=== PATIENT | female | born 1990 | race Caucasian/White ===

== ENCOUNTER 2016-08-03 12:39 | Emergency (ER) | payer MEDICAID, OTHER ==
[~2016-08-03] VITALS: Wt 87.0 kg
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
[2016-08-03] MEDS ORDERED: KETOROLAC 60 MG INJ IM STA (15:54)
[2016-08-03] MEDS ORDERED: IBUP-1542 PO (16:14)
[2016-08-03] MEDS ORDERED: HYDR-906 PO (16:14)
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
== END 2016-08-03 17:20 | disposition home or self-care (01) ==
LOC: FTE 12:39
DX: M25.561 Pain in right knee (principal); R51 Headache; Z04.3 Encounter for examination and observation following other accident
CPT/HCPCS: 70450; 96372; J1885; Z7502

== ENCOUNTER 2016-11-22 22:05 | Emergency (ER) | payer MEDICAID, OTHER ==
[~2016-11-22] VITALS: Ht 160 cm; Wt 82.0 kg
[~2016-11-22 22:05] MED LIST: HYDR-906 PO; IBUP-1542 PO
[2016-11-22 22:08] VITALS: Ht 160 cm; Wt 82.0 kg
[2016-11-22] MEDS ORDERED: SOD CHLORIDE 0.9% 1,000 ML IV STA (23:25)
[2016-11-22] MEDS ORDERED: KETOROLAC 30 MG INJ IV STA (23:25)
[2016-11-23] VITALS (12 sets, daily range): BP systolic 100–104; BP diastolic 52–60; PULSE 72–92; RESP 13–24
[2016-11-23] LABS: BASOPHILS % 0.3 % (0.0-2.0); EOSINOPHILS # 0.1 10^3/ul (0.0-0.5); EOSINOPHILS % 0.3 % (0.0-7.0); HEMATOCRIT 37.8 % (37.0-47.0); HEMOGLOBIN 12.4 g/dl (12.0-16.0); LYMPHOCYTES % 26.6 % (15.0-51.0); MEAN CORPUSCULAR HEMOGLOBIN 29.4 pg (29.0-33.0); MEAN CORPUSCULAR HGB CONC 32.8 g/dl (32.0-37.0); MEAN CORPUSCULAR VOLUME 89.6 fl (82.0-101.0); MEAN PLATELET VOLUME 11.8 fl (7.4-10.4); MONOCYTE # 1.2 10^3/ul (0.3-0.9); MONOCYTES % 7.6 % (0.0-11.0); NEUTROPHILS % 64.6 % (39.0-77.0); PLATELET COUNT 273 10^3/UL (140-415); RED BLOOD COUNT 4.22 10^6/ul (4.20-5.40); WHITE BLOOD COUNT 15.1 10^3/ul (4.8-10.8)
[2016-11-23 00:20] LABS: ALBUMIN/GLOBULIN RATIO 1.21; BILIRUBIN,INDIRECT 0.4 mg/dl (0-1.1); BILIRUBIN,TOTAL 0.4 mg/dl (0.2-1.3); CALCIUM 9.8 mg/dl (8.4-10.2); CREATININE 0.6 mg/dl (0.44-1.00); POTASSIUM 3.9 mmol/L (3.5-5.1); TOTAL PROTEIN 7.3 g/dl (6.1-8.1); UR BACTERIA FEW /HPF (NONE SEEN); UR BUDDING YEAST MODERATE /HPF (NONE SEEN); UR MUCUS MANY /HPF (NONE SEEN); UR RBC > 182 /HPF (0-5)
[2016-11-23 00:31] LABS: ADD UMIC YES; UR ASCORBIC ACID NEGATIVE (NEGATIVE); UR BILIRUBIN (Dip) NEGATIVE (NEGATIVE); UR BLOOD (Dip) 3+ mg/dL (NEGATIVE); UR CLARITY TURBID (CLEAR); UR COLOR RED (YELLOW); UR GLUCOSE (Dip) NEGATIVE (NEGATIVE); UR KETONES (Dip) TRACE mg/dL (NEGATIVE); UR LEUKOCYTE ESTERASE (Dip) NEGATIVE Leu/ul (NEGATIVE); UR NITRITE (Dip) NEGATIVE (NEGATIVE); UR SPECIFIC GRAVITY (Dip) 1.032 (1.003-1.030); UR TOTAL PROTEIN (Dip) 2+ mg/dl (NEGATIVE); UR UROBILINOGEN (Dip) NEGATIVE (NEGATIVE)
--- NOTE | 2016-11-23 01:17 | RADRPT ---
PROCEDURE: Obstetrical ultrasound. CLINICAL INDICATION: Vaginal bleeding. TECHNIQUE: Multiple sonographic images of the pelvis were obtained with transabdominal technique. Images were obtained with sánchez scale and color Doppler. COMPARISON: No prior studies are available for comparison. FINDINGS: There is an gestational sac within the endocervical canal with a pole identified. No hea rt tones are identified. The crown-rump length averages 1.86 cm, compatible with 8 weeks and 3 days. The mean sac diameter averages 2.52 cm, compatible with 7 weeks and 3 days. A yolk sac is penelope ntified. No subchorionic collection is identified. There is no pelvic free fluid. The right ovary measures 3.2 x 1.4 x 1.8 cm and the left ovary measur es 3.1 x 1.5 x 1.4 cm. There is normal flow to both ovaries. There is no suspicious adnexal mass penelope ntified. IMPRESSION: Gestational sac within the endocervical canal with a pole identified with an estimated gestati onal age of 8 weeks and 0 days. No heart tones are identified compatible with early failed pre gnancy. .Nick Harding MD, MD Date Time Electronically viewed and signed by .Nick Harding MD, MD on 11/23/2016 01:17 .T/
[2016-11-23 01:30] LABS: BASOPHILS % 0.3 % (0.0-2.0); EOSINOPHILS # 0.1 10^3/ul (0.0-0.5); EOSINOPHILS % 0.5 % (0.0-7.0); HEMATOCRIT 31.6 % (37.0-47.0); HEMOGLOBIN 10.7 g/dl (12.0-16.0); LYMPHOCYTES # 2.8 10^3/ul (0.8-2.9); LYMPHOCYTES % 18.8 % (15.0-51.0); MEAN CORPUSCULAR HEMOGLOBIN 30.7 pg (29.0-33.0); MEAN CORPUSCULAR HGB CONC 33.9 g/dl (32.0-37.0); MEAN CORPUSCULAR VOLUME 90.5 fl (82.0-101.0); MEAN PLATELET VOLUME 11.8 fl (7.4-10.4); MONOCYTES % 6.8 % (0.0-11.0); PLATELET COUNT 207 10^3/UL (140-415); RED BLOOD COUNT 3.49 10^6/ul (4.20-5.40); WHITE BLOOD COUNT 14.6 10^3/ul (4.8-10.8)
[2016-11-23] MEDS ORDERED: HYDROCODONE/APAP (5/325) TAB PO ONE (01:30)
[2016-11-23] MEDS ORDERED: NAPR-260 PO (05:33)
--- NOTE | 2016-11-23 05:39 | ERD ---
ER Documentation Chief Complaint Date/Time DATE: 11/23/16 TIME: 05:35 Chief Complaint Took pills to abort and now has severe vag bleed Cytotec 400 (ARSALAN VERMA PA-C) HPI 46-year-old female coming in complaining of vaginal bleeding. Patient is about 9 weeks and was seen at [facility]. She was given a Cytotec pill for medical . Patient states she took pill earlier today and has had heavy vaginal bleeding. Patient states she felt dizzy earlier and lightheaded. Patient was told to come to the ER. A1 (ARSALAN VERMA PA-C) ROS All systems reviewed and are negative except as per history of present illness. (ARSALAN VERMA PA-C) Medications Home Meds Active Scripts Naproxen* (Naprosyn*) 500 Mg Tablet, 500 MG PO BID Y for PAIN AND/OR INFLAMMATION, #30 TAB Prov:ARSALAN VERMA PA-C 11/23/16 Ibuprofen* (Motrin*) 600 Mg Tab, 600 MG PO Q6, #30 TAB Prov:BELEN,RHYS C 08/03/16 Hydrocodone/Acetaminophen (Starbuck 5-325 Tablet) 1 Each Tablet, 1 TAB PO Q6H Y for PAIN, #10 TAB Prov:BELEN,RHYS C 08/03/16 Allergies Allergies: Coded Allergies: No Known Allergies (Verified Allergy, Unknown, 08/09/15) PMhx/Soc History of Surgery: Yes (C-sectionx2) Anesthesia Reaction: No Hx Neurological Disorder: No Hx Respiratory Disorders: No Hx Cardiac Disorders: No Hx Psychiatric Problems: No Hx Miscellaneous Medical Probl: No Hx Alcohol Use: No Hx Substance Use: No Hx Tobacco Use: No Smoking Status: Never smoker (ARSALAN VERMA PA-C) Physical Exam Vitals Vital Signs Date Time Temp Pulse Resp B/P Pulse Ox O2 Delivery O2 Flow Rate FiO2 11/22/16 22:08 99.4 105 20 114/73 98 (GERI DONIS PA-C) Physical Exam GENERAL: The patient is well-appearing, well-nourished, in no acute distress HEENT: Atraumatic. Conjunctivae are pink. Pupils equal, round, and reactive to light. There is no scleral icterus. Tympanic membranes clear bilaterally. Oropharynx clear. No nystagmus or photophobia. NECK: C-spine is soft and supple. There is no meningismus. There is no cervical lymphadenopathy. No JVD. No bruits. No goiter. CHEST: Clear to auscultation bilaterally. There are no rales, wheezes or rhonchi. HEART: Regular rate and rhythm. No murmurs, clicks, rubs or gallops. No S3 or S4. ABDOMEN:Soft, nontender and nondistended. Good bowel sounds. No rebound or guarding. No gross peritonitis. No gross organomegaly or masses. No Orourke sign or McBurney point tenderness. : OS slightly open. Mild blood within the vaginal vault. No pooling. (ARSALAN VERMA PA-C) Result Diagram: 11/23/16 0120 11/22/16 2335 Results 24 hrs Laboratory Tests Test 11/22/16 23:35 11/23/16 01:20 White Blood Count 15.110^3/ul 14.610^3/ul Red Blood Count 4.2210^6/ul 3.4910^6/ul Hemoglobin 12.4g/dl 10.7g/dl Hematocrit 37.8% 31.6% Mean Corpuscular Volume 89.6fl 90.5fl Mean Corpuscular Hemoglobin 29.4pg 30.7pg Mean Corpuscular Hemoglobin Concent 32.8g/dl 33.9g/dl Red Cell Distribution Width 13.0% 13.0% Platelet Count 28800^3/UL 80706^3/UL Mean Platelet Volume 11.8fl 11.8fl Neutrophils % 64.6% 73.0% Lymphocytes % 26.6% 18.8% Monocytes % 7.6% 6.8% Eosinophils % 0.3% 0.5% Basophils % 0.3% 0.3% Nucleated Red Blood Cells % 0.0/100WBC 0.0/100WBC Neutrophils # (Manual) 9.810^3/ul 10.710^3/ul Lymphocytes # 4.010^3/ul 2.810^3/ul Monocytes # 1.210^3/ul 1.010^3/ul Eosinophils # 0.110^3/ul 0.110^3/ul Basophils # 0.010^3/ul 0.010^3/ul Nucleated Red Blood Cells # 0.010^3/ul 0.010^3/ul Urine Color RED Urine Clarity TURBID Urine pH 5.0 Urine Specific Ora 1.032 Urine Ketones TRACEmg/dL Urine Nitrite NEGATIVEmg/dL Urine Bilirubin NEGATIVEmg/dL Urine Urobilinogen NEGATIVEmg/dL Urine Leukocyte Esterase NEGATIVELeu/ul Urine Microscopic RBC > 182/HPF Urine Microscopic WBC 26/HPF Urine Bacteria FEW/HPF Urine Mucus MANY/HPF Urine Yeast (Budding) MODERATE/HPF Urine Hemoglobin 3+mg/dL Urine Glucose NEGATIVEmg/dL Urine Total Protein 2+mg/dl Sodium Level 137mmol/L Potassium Level 3.9mmol/L Chloride Level 106mmol/L Carbon Dioxide Level 23mmol/L Anion Gap 12 Blood Urea Nitrogen 9mg/dl Creatinine 0.60mg/dl Glucose Level 100mg/dl Calcium Level 9.8mg/dl Total Bilirubin 0.4mg/dl Direct Bilirubin 0.00mg/dl Indirect Bilirubin 0.4mg/dl Aspartate Amino Transf (AST/SGOT) 25IU/L Alanine Aminotransferase (ALT/SGPT) 31IU/L Alkaline Phosphatase 81IU/L Total Protein 7.3g/dl Albumin 4.0g/dl Globulin 3.30g/dl Albumin/Globulin Ratio 1.21 Beta HCG, Quantitative 65631.0mIU/ml Current Medications Medications (Trade) Dose Ordered Sig/Papa Route PRN Reason Start Time Stop Time Status Last Admin Dose Admin Sodium Chloride (NS) 1,000 ml @ 1,000 mls/hr Q1H STAT IV 11/22/16 23:25 11/23/16 00:24 DC 11/22/16 23:50 Ketorolac Tromethamine (Toradol) 30 mg ONCE STAT IV 11/22/16 23:25 11/22/16 23:26 DC 11/22/16 23:50 Acetaminophen/ Hydrocodone Bitart 1 tab 1 tab ONCE ONCE PO 11/23/16 01:30 11/23/16 01:31 DC 11/23/16 01:29 Oxytocin/Lactated Ringer's 500 ml @ 0 mls/hr ONCE PRN IV For Hemorrhage Management 11/23/16 11:00 11/23/16 11:00 DC Methylergonovine Maleate (Methergine) 0.2 mg ONCE PRN IM VAGINAL BLEEDING 11/23/16 11:00 11/23/16 11:00 DC Carboprost Tromethamine (Hemabate) 250 mcg ONCE PRN IM VAGINAL BLEEDING 11/23/16 11:00 11/23/16 11:00 DC Misoprostol (Cytotec) 1,000 mcg ONCE PRN FL VAGINAL BLEEDING 11/23/16 11:00 11/23/16 11:00 DC PROCEDURE: First trimester obstetrical ultrasound. CLINICAL INDICATION: , pelvic pain TECHNIQUE: Transabdominal sánchez scale and color Doppler ultrasound of the uterus of less than 14 weeks gestation (first trimester). COMPARISON: OB ultrasound 11/22/2016 FINDINGS: Abnormal low lying intrauterine gestation partially within the endocervical canal. No evidence of extrauterine gestation. Fielding-rump length: 1.89 cm heart rate: Undetected No evidence of subchorionic hemorrhage. Normal appearance the right ovary. Left ovary not identified. Free fluid: None. IMPRESSION: Failed intrauterine gestation with an estimated gestational age of 8 weeks 3 days by ultrasound criteria. No detectable heart rate. Products of conception are retained within the cervix and lower uterine segment. Findings are overall unchanged from the previous examination. Results were discussed with YELITZA Aguayo by telephone 11/23/2016 8:15:[address] Zack Gonzalez (GERI DONIS PA-C) Procedures/[facility] DIAGNOSTIC IMAGING REPORT Patient: EVERETTE ZHU : 1990 Age: 26 Sex: F MR #: [id number] DOS: 11/22/16 2325 Ordering MD: YULY VERMA PA-C Location: [facility] Room/Bed: PROCEDURE: Obstetrical ultrasound. CLINICAL INDICATION: Vaginal bleeding. TECHNIQUE: Multiple sonographic images of the pelvis were obtained with transabdominal technique. Images were obtained with sánchez scale and color Doppler. COMPARISON: No prior studies are available for comparison. FINDINGS: There is an gestational sac within the endocervical canal with a pole identified. No heart tones are identified. The crown-rump length averages 1.86 cm, compatible with 8 weeks and 3 days. The mean sac diameter averages 2.52 cm, compatible with 7 weeks and 3 days. A yolk sac is identified. No subchorionic collection is identified. There is no pelvic free fluid. The right ovary measures 3.2 x 1.4 x 1.8 cm and the left ovary measures 3.1 x 1.5 x 1.4 cm. There is normal flow to both ovaries. There is no suspicious adnexal mass identified. IMPRESSION: Gestational sac within the endocervical canal with a pole identified with an estimated gestational age of 8 weeks and 0 days. No heart tones are identified compatible with early failed . ER COURSE: Patient's hemoglobin did show signs of dropping. Dr. Ferrell laborist on-call came to evaluate patient at bedside. She recommended repeat ultrasound. If gestational sac previously seen within the endocervical canal is no longer visualized, Patient can go home without complication. This case will be passed on to YELITZA Donis. MDM: There are 26-year-old female coming in complaining of vaginal bleeding. I have low suspicion for hemodynamic instability. Patient's bleeding resolved and became stable while in the emergency room. If patient's gestational sac previously seen within the endocervical canal is no longer visualized on second ultrasound, patient is stable for outpatient management. Patient does not require a RhoGam injection as she is Rh+. No signs of urinary tract infection. (ARSALAN VERMA PA-C) This is a 26-year-old female patient who is a A1 presents to the ED and was signed off to me by my colleague, Yuly Verma PA-C pending the repeat pelvic ultrasound results. Repeat ultrasound shows failed intrauterine gestation with an estimated gestational age of 8 weeks 3 days by ultrasound criteria. No detectable heart rate. Products of conception are retained within the cervix and lower uterine segment. Patient still has a gestational sac and products of conception retained here in the ED after taking Cytotec prescribed by [facility]. This case was discussed with Dr. Weaver, laborist call and stated that patient can be consented for a dilation and curettage as an inpatient procedure however patient will be discharged after the procedure. Patient is hemodynamically stable. This was discussed with the patient. She has agreed to the procedure. Patient is now under the care of Dr. Weaver for further evaluation and treatment. (GERI DONIS PA-C) Departure Diagnosis: Primary Impression: Vaginal bleeding Condition: Stable Patient Instructions: Vaginal Bleed in Referrals: IRMA SOL MD (PCP) Additional Instructions: FOLLOW UP WITH YOUR PRIMARY CARE PHYSICIAN TOMORROW.Return to this facility if you are not improving as expected. ARSALAN VERMA PA-C Nov 23, 2016 05:39 GERI DONIS PA-C Nov 23, 2016 11:10
--- NOTE | 2016-11-23 08:17 | RADRPT ---
PROCEDURE: First trimester obstetrical ultrasound. CLINICAL INDICATION: , pelvic pain TECHNIQUE: Transabdominal sánchez scale and color Doppler ultrasound of the uterus of less t pena 14 weeks gestation (first trimester). COMPARISON: OB ultrasound 11/22/2016 FINDINGS: Abnormal low lying intrauterine gestation partially within the endocervical canal. No evidence of extrauterine gestation. Havelock-rump length: 1.89 cm heart rate: Undetected No evidence of subchorionic hemorrhage. Normal appearance the right ovary. Left ovary not identified. Free fluid: None. IMPRESSION: Failed intrauterine gestation with an estimated gestational age of 8 weeks 3 days by ultrasound laura billings. No detectable heart rate. Products of conception are retained within the cervix and lowe r uterine segment. Findings are overall unchanged from the previous examination. Results were discussed with YELITZA Aguayo by telephone 11/23/2016 8:15:[address] Zack Gonzalez RPTAT: AADD .Zack Gonzalez MD, Date Time Electronically viewed and signed by .Zack Gonzalez MD, on 11/23/2016 08:17 .B/
[2016-11-23] MEDS ORDERED: CEFAZOLIN 1 GM INJ ONE (10:27)
[2016-11-23] MEDS ORDERED: PROPOFOL 20 ML ONE (10:27)
[2016-11-23] MEDS ORDERED: MIDAZOLAM 1 MG/ML 2 ML INJ ONE (10:27)
[2016-11-23] MEDS ORDERED: FENTAnyl 50 MCG/ML VIAL ONE (10:27)
[2016-11-23] MEDS ORDERED: NEOSTIGMINE 3 MG/3 ML SYRINGE ONE (10:27)
[2016-11-23] MEDS ORDERED: ROCURONIUM 50 MG INJ ONE (10:27)
[2016-11-23] MEDS ORDERED: DEXAMETHASONE 4 MG/ML 1 ML INJ ONE (10:27)
[2016-11-23] MEDS ORDERED: ONDANSETRON 4 MG INJ ONE (10:27)
[2016-11-23] MEDS ORDERED: GLYCOPYRROLATE 0.4 MG INJ ONE (10:27)
[2016-11-23] MEDS ORDERED: MISOPROSTOL 200 MCG TAB PR PRN (11:00)
[2016-11-23] MEDS ORDERED: CARBOPROST 250 MCG INJ IM PRN (11:00)
[2016-11-23] MEDS ORDERED: OXYTOCIN 30 UNITS/LR 500 ML IV PRN (11:00)
[2016-11-23] MEDS ORDERED: METHYLERGONOVINE 0.2 MG INJ IM PRN (11:00)
[2016-11-23] MEDS ORDERED: HYDROmorphONE (0.2 MG/ML) 10ML SYG IV PRN ×3 (11:30)
[2016-11-23] MEDS ORDERED: IPRATROPIUM (NEB) 0.5 MG/2.5 ML AMP HHN PRN (11:30)
[2016-11-23] MEDS ORDERED: ALBUTEROL 0.083% (NEB) 2.5 MG/3 ML AMP HHN PRN (11:30)
[2016-11-23] MEDS ORDERED: EPHEDrine SULFATE 50 MG/5 ML SYG IV PRN (11:30)
[2016-11-23] MEDS ORDERED: OXYCODONE/ACETAMINOPHEN (5/325) TAB PO PRN ×2 (11:30)
[2016-11-23] MEDS ORDERED: TRIMETHOBENZAMIDE 100 MG/ML VIAL IM PRN (11:30)
[2016-11-23] MEDS ORDERED: ONDANSETRON 4 MG INJ IV PRN (11:30)
[2016-11-23] MEDS ORDERED: LABETALOL HCL 20MG INJ IV PRN (11:30)
[2016-11-23] MEDS ORDERED: FENTAnyl 50 MCG/ML VIAL IV PRN ×3 (11:30)
[2016-11-23] MEDS ORDERED: MIDAZOLAM 1 MG/ML 2 ML INJ IV PRN (11:30)
[2016-11-23] MEDS ORDERED: DIPHENHYDRAMINE 50 MG INJ IV PRN (11:30)
[2016-11-23] MEDS ORDERED: hydrALAzine 20 MG INJ IV PRN (11:30)
[2016-11-23] MEDS ORDERED: MEPERIDINE 25 MG INJ IV PRN (11:30)
--- NOTE | 2016-11-23 11:33 | OPPN ---
Date/Time of Note Date/Time of Note DATE: 11/23/16 TIME: 11:32 Operative Report Free Text/Dictation 9wks Incomplete Preoperative Diagnosis 9wks Incomplete Postoperative Diagnosis 9wks Incomplete Operation/Procedure Performed D&C&suction Provider: CRISTIAN PHILLIPS M.D. Anesthesia Type: general Estimated blood loss: 10 - 50 ml's Transfusion Required: no Specimens POC Grafts/Implants: none Complications: no CRISTIAN PHILLIPS M.D. Nov 23, 2016 11:33
[2016-11-23 11:45] LABS: BASOPHILS % 0.2 % (0.0-2.0); EOSINOPHILS # 0.1 10^3/ul (0.0-0.5); HEMATOCRIT 26.2 % (37.0-47.0); HEMOGLOBIN 8.9 g/dl (12.0-16.0); LYMPHOCYTES % 21.3 % (15.0-51.0); MEAN CORPUSCULAR HEMOGLOBIN 30.9 pg (29.0-33.0); MEAN PLATELET VOLUME 11.7 fl (7.4-10.4); MONOCYTE # 0.6 10^3/ul (0.3-0.9); MONOCYTES % 5.9 % (0.0-11.0); NEUTROPHILS % 71.2 % (39.0-77.0); PLATELET COUNT 156 10^3/UL (140-415); RED BLOOD COUNT 2.88 10^6/ul (4.20-5.40); RED CELL DISTRIBUTION WIDTH 13.1 % (11.5-14.5); WHITE BLOOD COUNT 9.3 10^3/ul (4.8-10.8)
[2016-11-23 12:10] LABS: INR 1.06; PROTIME 13.8 Sec (12.2-14.2); PT RATIO 1.1
[2016-11-23 12:11] LABS: PARTIAL THROMBOPLASTIN TIME 24.1 Sec (25.0-35.0)
--- NOTE | 2016-11-23 12:51 | OPR ---
DATE OF OPERATION: 11/23/2016 PREOPERATIVE DIAGNOSIS: Incomplete at 9 weeks. POSTOPERATIVE DIAGNOSIS: Incomplete at 9 weeks. OPERATIVE PROCEDURE: Dilatation and curettage and suction. SURGEON: Jose Weaver MD ANESTHESIA: General. ANESTHESIOLOGIST: Ignacio Damon MD ESTIMATED BLOOD LOSS: Less than 50 cc TECHNIQUE: The patient was taken to the operating room where general anesthesia was found to be adequate. The patient was placed in the dorsal lithotomy position. After prep and drape, the weighted speculum was placed inside the vaginal vault. Anterior lip of the cervix was grasped by a single-tooth tenaculum. Suction size 7 was inserted. Intrauterine cavity was suctioned. Sharp curettage of endometrial cavity was done and hemostasis was achieved. Instruments removed. The patient tolerated the procedure well and was transferred to the recovery room in stable condition. There were no complications regarding this procedure. Dictated By: Jose Weaver MD /tanmay/theo /Document#: [id number]
--- NOTE | 2016-11-25 07:13 | PREOPHP ---
DATE OF ADMISSION: 11/22/2016 HISTORY OF PRESENT ILLNESS: This is a 26-year-old 3, para 2 at 9 weeks' gestational age with diagnosis of incomplete , admitted through the Emergency Room with vaginal bleeding. PAST MEDICAL HISTORY: Denied. PAST SURGICAL HISTORY: Denied. ALLERGIES: NKDA. PHYSICAL EXAMINATION: VITAL SIGNS: Stable. GENERAL APPEARANCE: Exam normal. ABDOMEN: Nontender and nondistended. GENITAL: Cervix was 1 cm, open, 2-4 mL dark blood noticed in vaginal vault. ASSESSMENT AND PLAN: A 26-year-old 3, para 2 at 9 weeks plus gestational age admitted with diagnosis of incomplete and vaginal bleeding. The patient received Cytotec from [facility] yesterday and this is an incomplete . The patient was consented for dilatation and curettage and suction and was taken to the operating room. Dictated By: oJse Weaver MD /tanmay/theo /Document#: [id number]
== END 2016-11-23 10:54 | disposition home or self-care (01) ==
LOC: FTE 22:05
DX: O20.9 Hemorrhage in early pregnancy, unspecified (principal); R10.2 Pelvic and perineal pain; Z3A.08 8 weeks gestation of pregnancy
CPT/HCPCS: 36415; 76801; 80053; 81001; 84702; 85025; 85610; 85730; 86592; 86850; 86900; 86901; 88305; 96374; J0690; J1100; J1885; J2250; J2405; J3010; J7030; Z7502; Z7512; Z7610; J2710

== ENCOUNTER 2016-11-25 13:29 | Emergency (ER) | payer MEDICAID ==
[~2016-11-25] VITALS: Ht 167.6 cm; Wt 83.0 kg
[~2016-11-25 13:29] MED LIST changes: +NAPR-260 PO
[2016-11-25 14:17] VITALS: Ht 167.6 cm; Wt 83.0 kg
--- NOTE | 2016-11-25 16:37 | ERD ---
ER Documentation Chief Complaint Date/Time DATE: 11/25/16 TIME: 16:33 Chief Complaint dizziness, n/v x 2 days; d&c 3 days ago HPI 26-year-old female presents to the emergency room complaining of lightheadedness , intermittent crampy moderate pelvic pain, couple episodes of vomiting in the past 2 days. Patient states that last week she found out she was and physician has given her an pill that she does not remember the name. She continued to have heavy bleeding and was seen at this facility for D&C and stayed one night in the hospital. Patient continues to have vaginal bleeding, swelling 2-3 pads per day. She denies any diarrhea, constipation. He denies any and medications for this. ROS All systems reviewed and are negative except as per history of present illness. Medications Home Meds Active Scripts Docusate Sodium* (Colace*) 100 Mg Capsule, 100 MG PO BID, #30 CAP Prov:DAVID ORTIZ PA-C 11/25/16 Ferrous Sulfate* (Ferrous Sulfate*) 325 Mg Tabec, 325 MG PO BID, #30 TAB Prov:DAVID ORTIZ PA-C 11/25/16 Phenazopyridine Hcl* (Pyridium*) 200 Mg Tab, 200 MG PO TID, #30 TAB Prov:DAVID ORTIZ PA-C 11/25/16 Nitrofurantoin Monohyd Macrocr* (Macrobid*) 100 Mg Capsr, 100 MG PO BID for 7 Days, CAP Prov:DAVID ORTIZ PA-C 11/25/16 Naproxen* (Naprosyn*) 500 Mg Tablet, 500 MG PO BID Y for PAIN AND/OR INFLAMMATION, #30 TAB Prov:ARSALAN VERMA PA-C 11/23/16 Ibuprofen* (Motrin*) 600 Mg Tab, 600 MG PO Q6, #30 TAB Prov:RHYS GLOVER 08/03/16 Hydrocodone/Acetaminophen ([place] 5-325 Tablet) 1 Each Tablet, 1 TAB PO Q6H Y for PAIN, #10 TAB Prov:RHYS GLOVER 08/03/16 Allergies Allergies: Coded Allergies: No Known Allergies (Verified Allergy, Unknown, 08/09/15) PMhx/Soc History of Surgery: Yes (C-sectionx2) Anesthesia Reaction: No Hx Neurological Disorder: No Hx Respiratory Disorders: No Hx Cardiac Disorders: No Hx Psychiatric Problems: No Hx Miscellaneous Medical Probl: No Hx Alcohol Use: No Hx Substance Use: No Hx Tobacco Use: No Physical Exam Vitals Vital Signs Date Time Temp Pulse Resp B/P Pulse Ox O2 Delivery O2 Flow Rate FiO2 11/25/16 14:17 97.9 76 18 116/58 100 Physical Exam Const: WDWN Head: Atraumatic Eyes: Normal Conjunctiva ENT: Normal External Ears, Nose and Mouth. Neck: Full range of motion..~ No meningismus. Resp: Clear to auscultation bilaterally Cardio: Regular rate and rhythm, no murmurs Abd: Soft, non distended. Normal bowel sounds Tenderness to palpation in the pelvic Skin: No petechiae or rashes Back: No midline or flank tenderness Ext: No cyanosis, or edema Neur: Awake and alert Psych: Normal Mood and Affect Result Diagram: 11/25/16 1645 11/25/16 1645 Results 24 hrs Laboratory Tests Test 11/25/16 16:45 White Blood Count 10.810^3/ul Red Blood Count 3.0210^6/ul Hemoglobin 9.3g/dl Hematocrit 28.1% Mean Corpuscular Volume 93.0fl Mean Corpuscular Hemoglobin 30.8pg Mean Corpuscular Hemoglobin Concent 33.1g/dl Red Cell Distribution Width 13.5% Platelet Count 04909^3/UL Mean Platelet Volume 11.9fl Neutrophils % 62.1% Lymphocytes % 30.2% Monocytes % 6.2% Eosinophils % 0.7% Basophils % 0.3% Nucleated Red Blood Cells % 0.0/100WBC Neutrophils # (Manual) 6.710^3/ul Lymphocytes # 3.310^3/ul Monocytes # 0.710^3/ul Eosinophils # 0.110^3/ul Basophils # 0.010^3/ul Nucleated Red Blood Cells # 0.010^3/ul Urine Color YELLOW Urine Clarity SLIGHTLY CLOUDY Urine pH 5.0 Urine Specific [place] 1.028 Urine Ketones NEGATIVEmg/dL Urine Nitrite NEGATIVEmg/dL Urine Bilirubin NEGATIVEmg/dL Urine Urobilinogen NEGATIVEmg/dL Urine Leukocyte Esterase NEGATIVELeu/ul Urine Microscopic RBC > 182/HPF Urine Microscopic WBC 10/HPF Urine Squamous Epithelial Cells FEW/HPF Urine Bacteria FEW/HPF Urine Mucus MANY/HPF Urine Hemoglobin 3+mg/dL Urine Glucose NEGATIVEmg/dL Urine Total Protein 1+mg/dl Sodium Level 140mmol/L Potassium Level 3.8mmol/L Chloride Level 107mmol/L Carbon Dioxide Level 26mmol/L Anion Gap 11 Blood Urea Nitrogen 10mg/dl Creatinine 0.60mg/dl Glucose Level 92mg/dl Calcium Level 9.3mg/dl Total Bilirubin 0.0mg/dl Direct Bilirubin 0.00mg/dl Indirect Bilirubin 0.0mg/dl Aspartate Amino Transf (AST/SGOT) 24IU/L Alanine Aminotransferase (ALT/SGPT) 48IU/L Alkaline Phosphatase 57IU/L Total Protein 6.7g/dl Albumin 3.8g/dl Globulin 2.90g/dl Albumin/Globulin Ratio 1.31 Current Medications Medications (Trade) Dose Ordered Sig/Papa Route PRN Reason Start Time Stop Time Status Last Admin Dose Admin Ceftriaxone Sodium (Rocephin) 50 ml @ 100 mls/hr ONCE STAT IVPB 11/25/16 17:41 11/25/16 18:10 DC Morphine Sulfate (morphine) 4 mg ONCE STAT IV 11/25/16 17:53 11/25/16 17:54 DC Ondansetron HCl (Zofran Inj) 4 mg ONCE STAT IV 11/25/16 17:53 11/25/16 17:54 DC Procedures/MDM 26-year-old female presents to the emergency room complaining of lightheadedness , intermittent crampy moderate pelvic pain, couple episodes of vomiting in the past 2 days since she was discharged at this hospital for D&C. Patient was found to have a urinary tract infection on UA without any evidence of nephrolithiasis or pyelonephritis. Patient was given ceftriaxone in the ED with prescription for Macrobid and Pyridium. Lab work was done, patient hemoglobin in 9.3 which has increased since last Thursday, Patient was given prescription for ferrous sulfate. She is stable to be discharged home to follow-up with her [employer] and PCP. She understands and agrees with this plan Departure Diagnosis: Primary Impression: UTI (urinary tract infection) Condition: Stable DAVID ORTIZ PA-C Nov 25, 2016 16:37
[2016-11-25 17:13] LABS: BASOPHILS % 0.3 % (0.0-2.0); EOSINOPHILS # 0.1 10^3/ul (0.0-0.5); EOSINOPHILS % 0.7 % (0.0-7.0); HEMATOCRIT 28.1 % (37.0-47.0); HEMOGLOBIN 9.3 g/dl (12.0-16.0); LYMPHOCYTES # 3.3 10^3/ul (0.8-2.9); LYMPHOCYTES % 30.2 % (15.0-51.0); MEAN CORPUSCULAR HEMOGLOBIN 30.8 pg (29.0-33.0); MEAN CORPUSCULAR HGB CONC 33.1 g/dl (32.0-37.0); MEAN PLATELET VOLUME 11.9 fl (7.4-10.4); MONOCYTE # 0.7 10^3/ul (0.3-0.9); MONOCYTES % 6.2 % (0.0-11.0); NEUTROPHILS % 62.1 % (39.0-77.0); PLATELET COUNT 209 10^3/UL (140-415); RED BLOOD COUNT 3.02 10^6/ul (4.20-5.40); RED CELL DISTRIBUTION WIDTH 13.5 % (11.5-14.5); WHITE BLOOD COUNT 10.8 10^3/ul (4.8-10.8)
[2016-11-25 17:29] LABS: ADD UMIC YES; UR ASCORBIC ACID 40 mg/dL (NEGATIVE); UR BACTERIA FEW /HPF (NONE SEEN); UR BILIRUBIN (Dip) NEGATIVE (NEGATIVE); UR BLOOD (Dip) 3+ mg/dL (NEGATIVE); UR CLARITY SLIGHTLY CLOUDY (CLEAR); UR COLOR YELLOW (YELLOW); UR GLUCOSE (Dip) NEGATIVE (NEGATIVE); UR KETONES (Dip) NEGATIVE (NEGATIVE); UR LEUKOCYTE ESTERASE (Dip) NEGATIVE Leu/ul (NEGATIVE); UR MUCUS MANY /HPF (NONE SEEN); UR NITRITE (Dip) NEGATIVE (NEGATIVE); UR RBC > 182 /HPF (0-5); UR SPECIFIC GRAVITY (Dip) 1.028 (1.003-1.030); UR SQUAMOUS EPITHELIAL CELL FEW /HPF (FEW); UR TOTAL PROTEIN (Dip) 1+ mg/dl (NEGATIVE); UR UROBILINOGEN (Dip) NEGATIVE (NEGATIVE)
--- NOTE | 2016-11-25 17:37 | RADRPT ---
PROCEDURE: US Pelvis. TECHNIQUE: Multiple sonographic images of the pelvis were obtained utilizing a transabdominal and endovaginal technique. The images were reviewed on a PACS workstation. COMPARISON: 11/23/2016 FINDINGS: The uterus is visualized and measures 7 x 4.8 x 7.4 cm in size. The previously noted intrauterine pr egnancy is no longer visualized. The endometrial echo complex is normal and measures 9.8 mm. There i s no evidence for free fluid. The right ovary has a normal echotexture and measures 2 x 3.3 x 2 cm. The left ovary has a normal echotexture and measures 2.9 x 1.3 x 2.3 cm. No adnexal masses are not ed. A small nonspecific hypoechoic structure is seen in the cervix which may represent residual bloo d product. IMPRESSION: 1. Nonvisualization of the previously noted intrauterine . 2. Small nonspecific hypoechoic structure in the cervix which may represent residual blood product. RPTAT: HPNM Physician Diann Date Time Electronically viewed and signed by Physician Diann on 11/25/2016 17:36 /
[2016-11-25 17:38] LABS: ALBUMIN 3.8 g/dl (3.3-4.9); ALBUMIN/GLOBULIN RATIO 1.31; CALCIUM 9.3 mg/dl (8.4-10.2); CREATININE 0.6 mg/dl (0.44-1.00); POTASSIUM 3.8 mmol/L (3.5-5.1); TOTAL PROTEIN 6.7 g/dl (6.1-8.1)
[2016-11-25] MEDS ORDERED: CEFTRIAXONE 1 GM/50 ML (PMX) 50 ML IVPB STA (17:41)
[2016-11-25] MEDS ORDERED: ONDANSETRON 4 MG INJ IV STA (17:53)
[2016-11-25] MEDS ORDERED: morphine 4 MG/ML VIAL IV STA (17:53)
[2016-11-25] MEDS ORDERED: NITR-58 PO (18:00)
[2016-11-25] MEDS ORDERED: PHEN-538 PO (18:00)
[2016-11-25] MEDS ORDERED: DOCU-144 PO (18:03)
[2016-11-25] MEDS ORDERED: FER325 PO (18:03)
[2016-11-25 19:40] VITALS: BP 120/76; PULSE 72; RESP 17; TEMP 97.8
== END 2016-11-25 19:40 | disposition home or self-care (01) ==
LOC: FTE 13:29
DX: N39.0 Urinary tract infection, site not specified (principal); R11.2 Nausea with vomiting, unspecified
CPT/HCPCS: 76830; 76856; 80053; 81001; 85025; 96374; 96375; J0696; J2270; J2405; Z7502

== ENCOUNTER 2017-07-08 17:52 | Emergency (ER) | END 2017-07-08 19:39 | disposition home or self-care (01) ==

== ENCOUNTER 2017-09-21 06:46 | Emergency (ER) | END 2017-09-21 08:40 | disposition home or self-care (01) ==

== ENCOUNTER 2017-10-06 16:30 | Emergency (ER) | END 2017-10-06 22:21 | disposition home or self-care (01) ==

== ENCOUNTER 2018-07-27 12:30 | Emergency (ER) | payer SELFPAY ==
[~2018-07-27] VITALS: Ht 160 cm; Wt 91.3 kg
[~2018-07-27 12:30] MED LIST changes: +CIPR500T4 PO; +DOCU-144 PO; +FER325 PO; +HYDR-4011 PO; -HYDR-906 PO; +IBUP800T48 PO; -NAPR-260 PO; +NAPR-985 PO; +NITR-58 PO; +PHEN-538 PO
[2018-07-27 12:34] VITALS: Ht 160 cm; Wt 91.3 kg
[2018-07-27 14:11] VITALS: BP 115/72; PULSE 100; RESP 20
[2018-07-27] MEDS ORDERED: IBUP800T48 PO (14:22)
[2018-07-27] MEDS ORDERED: ACET500C5 PO (14:22)
--- NOTE | 2018-07-27 15:26 | ERD ---
ER Documentation Chief Complaint Chief Complaint PT with R lower leg insect bite, CHEW, ST and diarrhea since yesterday 5pm HPI 28-year-old female complaining of sore throat with diarrhea and headache. Patient works for an [employer] and yesterday noticed a bug bite to her right lower leg. She is unsure if the bug bite is been the cause of her symptoms. She states she had a fever of 103 that started today. Took Advil 4 hours prior to my evaluation. She has some mild lower pelvic pain but denies back pain. Denies dysuria. Medical history is anemia. Surgical history C- section cholecystectomy. Social history denies. NKDA ROS All systems reviewed and are negative except as per history of present illness. Medications Home Meds Active Scripts Acetaminophen* (Tylophen*) 500 Mg Capsule, 2 CAP PO Q8H PRN for PAIN AND OR ELEVATED TEMP, #20 CAP Prov:ARSALAN VERMA PA-C 07/27/18 Ibuprofen* (Motrin*) 800 Mg Tab, 800 MG PO Q6, #30 TAB Prov:ARSALAN VERMA PA-C 07/27/18 Ciprofloxacin Hcl* (Ciprofloxacin Hcl*) 500 Mg Tablet, 500 MG PO BID for 7 Days, TAB Prov:HOLLY GUERIN PA-C 10/06/17 Naproxen* (Naprosyn*) 500 Mg Tablet, 500 MG PO BID PRN for PAIN AND/OR INFLAMMATION, #30 TAB Prov:HOLLY GUERIN PA-C 10/06/17 Hydrocodone/Acetaminophen ([place] 5-325 Tablet) 1 Each Tablet, 1 TAB PO Q6H PRN for PAIN, #8 TAB Prov:HOLLY GUERIN PA-C 10/06/17 Ibuprofen* (Motrin*) 800 Mg Tab, 800 MG PO Q6, #30 TAB Prov:JAIME ANDERSEN PA-C 09/21/17 Docusate Sodium* (Colace*) 100 Mg Capsule, 100 MG PO BID, #30 CAP Prov:DAVID ORTIZ PA-C 11/25/16 Ferrous Sulfate* (Ferrous Sulfate*) 325 Mg Tabec, 325 MG PO BID, #30 TAB Prov:DAVID ORTIZ PA-C 11/25/16 Phenazopyridine Hcl* (Pyridium*) 200 Mg Tab, 200 MG PO TID, #30 TAB Prov:DAVID ORTIZ PA-C 11/25/16 Nitrofurantoin Monohyd Macrocr* (Macrobid*) 100 Mg Capsr, 100 MG PO BID for 7 Days, CAP Prov:DAVID ORTIZ PA-C 11/25/16 Naproxen* (Naprosyn*) 500 Mg Tablet, 500 MG PO BID PRN for PAIN AND/OR INFLAMMATION, #30 TAB Prov:ARSALAN VERMA PA-C 11/23/16 Ibuprofen* (Motrin*) 600 Mg Tab, 600 MG PO Q6, #30 TAB Prov:RHYS GLOVER 08/03/16 Hydrocodone/Acetaminophen ([place] 5-325 Tablet) 1 Each Tablet, 1 TAB PO Q6H PRN for PAIN, #10 TAB Prov:RHYS GLOVER 08/03/16 Allergies Allergies: Coded Allergies: No Known Allergies (Verified Allergy, Unknown, 08/09/15) PMhx/Soc History of Surgery: Yes (C-sectionx2, cholcystectomy) Anesthesia Reaction: No Hx Neurological Disorder: No Hx Respiratory Disorders: No Hx Cardiac Disorders: No Hx Psychiatric Problems: No Hx Miscellaneous Medical Probl: No Hx Alcohol Use: No Hx Substance Use: No Hx Tobacco Use: Yes (marijuana) Smoking Status: Current every day smoker FmHx Family History: No diabetes, No coronary disease, No other Physical Exam Vitals Vital Signs Date Temp Pulse Resp B/P (MAP) Pulse Ox O2 O2 Flow FiO2 Time Delivery Rate 07/27/18 99.6 100 20 115/72 99 Room Air 14:11 (86) 07/27/18 99.4 109 18 128/65 97 12:34 (86) Physical Exam GENERAL: The patient is well-appearing, well-nourished, in no acute distress HEENT: Atraumatic. Conjunctivae are pink. Pupils equal, round, and reactive to light. There is no scleral icterus. Tympanic membranes clear bilaterally. Oropharynx clear. No nystagmus or photophobia. CHEST: Clear to auscultation bilaterally. There are no rales, wheezes or rhonchi. HEART: Regular rate and rhythm. No murmurs, clicks, rubs or gallops. No S3 or S4. ABDOMEN:Soft, nontender and nondistended. Good bowel sounds. No rebound or guarding. No gross peritonitis. No gross organomegaly or masses. No Orourke sign or McBurney point tenderness. BACK: No midline or flank tenderness. EXTREMITIES: Equal pulses bilaterally. There is no peripheral clubbing, cyanosis or edema. No focal swelling or erythema. Full range of motion. Grossly neurovascularly intact. NEUROLOGIC: Alert and oriented. Cranial nerves II through XII intact. Motor strength in all 4 extremities with 5 out of 5 strength. Sensation grossly intact. Normal speech and gait. Babinski negative. DTR 2+ throughout. SKIN: Small erythematous bite noted to the right lower extremity with no surrounding fluctuance. No pustule. No lymphatic streaking. No induration Results 24 hrs Laboratory Tests Test 07/27/18 14:07 Bedside Urine pH (LAB) 6.0 Bedside Urine Protein (LAB) 1+ Bedside Urine Glucose (UA) Negative Bedside Urine Ketones (LAB) 2+ Bedside Urine Blood 1+ Bedside Urine Nitrite (LAB) Negative Bedside Urine Leukocyte Esterase (L Negative POC Beta HCG, Qualitative NEGATIVE Procedures/MDM ER course: Urinalysis negative. MDM: 28-year-old female presenting with viral type symptoms and bug bite. I do not feel patient's back by is associated with viral type syndrome. Patient's exam is non-concerning and patient is nontoxic-appearing. Patient is discharged with supportive medications and told to follow-up with primary care within 1 to 2 days for close evaluation. She is told if symptoms change or worsen to return immediately to the ER. All questions answered at discharge Departure Diagnosis: Primary Impression: Viral syndrome Additional Impression: Bite wound Condition: Stable Patient Instructions: Insect Bites and Stings, Viral Syndrome (Adult) Referrals: COMM[facility]ITY CLIN[facility] YOU HAVE RECEIVED A MEDICAL SCREENING EXAM AND THE RESULTS INDICATE THAT YOU DO NOT HAVE A CONDITION THAT REQUIRES URGENT TREATMENT IN THE EMERGENCY DEPARTMENT. FURTHER EVALUATION AND TREATMENT OF YOUR CONDITION CAN WAIT UNTIL YOU ARE SEEN IN YOUR DOCTORS OFFICE WITHIN THE NEXT 1-2 DAYS. IT IS YOUR RESPONSIBILITY TO MAKE AN APPOINTMENT FOR FOLOW-UP CARE. IF YOU HAVE A PRIMARY DOCTOR --you should call your primary doctor and schedule an appointment IF YOU DO NOT HAVE A PRIMARY DOCTOR YOU CAN CALL OUR PHYSICIAN REFERRAL HOTLINE AT IF YOU CAN NOT AFFORD TO SEE A PHYSICIAN YOU CAN CHOSE FROM THE FOLLOWING [facility] [address] [facility] [address] [facility] [facility] [address] [facility] [address] [facility]. [facility] [address] [facility] [facility] [address] Additional Instructions: FOLLOW UP WITH YOUR PRIMARY CARE PHYSICIAN TOMORROW.Return to this facility if you are not improving as expected. ARSALAN VERMA PA-C July 27, 2018 15:26
== END 2018-07-27 17:03 | disposition home or self-care (01) ==
LOC: FTE 12:30
DX: S80.861A Insect bite (nonvenomous), right lower leg, initial encounter (principal); R10.2 Pelvic and perineal pain; B34.9 Viral infection, unspecified; F17.210 Nicotine dependence, cigarettes, uncomplicated; W57.XXXA Bitten or stung by nonvenomous insect and other nonvenomous arthropods, initial encounter; Y92.9 Unspecified place or not applicable
CPT/HCPCS: 81003; 81025; 99282